=== PATIENT | male | born 1945 | race Caucasian/White ===

== ENCOUNTER 2016-05-15 12:06 | Emergency (ER) | payer OTHER ==
--- NOTE | 2016-05-15 13:33 | ED EKG INTERP ---
EKG Interpretation - EKG Time of EKG reading by physician:: 12:31 EKG Read and Signed by:: Esmer Stevens EKG Interpretation (*Must complete 3 of following elements*): Abnormal Rate: 88 Rhythm: atrial-sensed ventricular -paced rhythm <Mandy Tidwell - Last Filed: 05/15/16 13:32> - EKG Time of EKG reading by physician:: 13:46 <Hang Wilder - Last Filed: 05/15/16 13:47> Attestation - Scribe Verification/Attestation Scribe:: Mandy Tidwell Acting as Scribe for:: Esmer Stevens Scribe documention review:: This chart was documented by a scribe and accurately reflects the service the provider performed and the decisions made by the provider. <Mandy Tidwell - Last Filed: 05/15/16 13:32> Physician Attestation
--- NOTE | 2016-05-15 13:53 | PROVIDER DOCUMENTATION ---
HPI-Musculoskeletal Pain/Inj - GENERAL Chief Complaint: Extremity Pain Stated Complaint: right leg pain Time Seen by Provider: 05/15/16 13:20 Source: patient, family - HX OF PRESENT ILLNESS-MUSKULOSKELTAL Quality of Pain: reports: aching, tightness Severity in ED: mild Onset/Duration: other (Apr 28, 2016) Timing: getting worse Modifying Factors: improves with: nothing Any recent injury?: No Similar Symptoms Previously?: No Recently seen or treated by another doctor?: Yes (Leg not investigated) - FALL INJURY Location of Pain/Injury: reports: lower body Pain Radiation: reports: no radiation Injury Associated Symptoms: reports: denies symptoms - LOWER EXTREMITY PAIN/INJURY Lower Extremities Pain: thigh: right (Ecchymosis in rt groin) Review of Systems - Adult - REVIEW OF SYSTEMS - ADULT Constitutional: reports: no symptoms reported Eyes: reports: no symptoms reported Ears, Nose, Mouth & Throat: reports: no symptoms reported Cardiovascular: reports: chest pain, irregular heart rate, poor circulation Respiratory: reports: dyspnea on exertion, shortness of breath Gastrointestinal: reports: other (history of colon ca) Genitourinary: reports: no symptoms reported Musculoskeletal: reports: see HPI Integumentary: reports: no symptoms reported Neurological: reports: loss of balance (he appears to have had multiple TIA the past few months) Psychiatric: reports: no symptoms reported (IDDM) Hematologic/Lymphatic: reports: no symptoms reported Allergic/Immunologic: reports: no symptoms reported Past History - Adult - PAST MEDICAL HISTORY-ADULT Major Childhood Illnesses: reports: denies history Cardiovascular: reports: HTN, hyperlipidemia, ME, pacemaker Respiratory: reports: other (ARDS) Gastrointestinal: reports: cancer (colon), GERD, pancreatitis, other (colon can - currently in remission) Genitourinary: reports: kidney disease (insuffiencey) Musculoskeletal: reports: chronic pain (back) Neurological: reports: cancer/tumor, cognitive dysfunction, TIA Psychiatric: reports: denies history Endocrine/Immune: reports: Diabetes Diabetes Type: Type 2 Diabetes controlled by:: Insulin Dependent - PRIOR SURGERIES/PROCEDURES Surgical/Procedure History: reports: CABG, pacemaker, bowel surgery, back/neck - IMMUNIZATION STATUS Childhood Immunizations: See Nurse Assessment Flu Vaccine: See Nurse Assessment - FAMILY HISTORY Family History: reviewed, not pertinent - SOCIAL HISTORY Smoking: denies Substance Use: none/never Alcohol Use Frequency: never 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) Physical Exam-Injury Related - Physical Exam-Injury Related Initial Vital Signs Reviewed: Yes General Appearance: appears well, alert Eyes: PERRL/EOMI, pink conjunctivae Head, Ears, Nose, Mouth & Throat: normocephalic/atraumatic Neck: non-tender, full range of motion Respiratory: chest non-tender, lungs clear Cardiovascular: normal peripheral pulses, regular rate, rhythm Abdominal Exam: normal bowel sounds, soft Male Genitalia: other (Ecchymosis in ing region where he had cath 04/28) Rectal Exam: deferred Lymphatic: no adenopathy Back Exam: normal inspection Extremity: normal inspection, no pedal edema, no calf tenderness, swelling Neurologic: grossly normal (peripheral neuropathy) - Glascow Coma Score Best Verbal Response ([place]): (2) incomprehsible sounds [place] Total: 15 Progress - PLAN OF CARE/RESULTS Progress/Plan/Lab Results: Laboratory Tests 05/15/16 05/15/16 05/15/16 12:38 12:38 12:38 WBC 6.71 RBC 3.81 L Hgb 12.0 L Hct 36.8 L MCV 96.6 MCH 31.5 H MCHC 32.6 L RDW Std Deviation 14.7 H Plt Count 179 MPV 10.4 Immature Gran % (Auto) 0.3 Neut % (Auto) 65.6 Lymph % (Auto) 17.9 L [place] % (Auto) 12.8 H Eos % (Auto) 2.8 Baso % (Auto) 0.6 Immature Gran # (Auto) 0.02 Neut # (Auto) 4.40 Lymph # (Auto) 1.20 [place] # (Auto) 0.86 H Eos # (Auto) 0.19 Baso # (Auto) 0.04 D-Dimer 0.49 Sodium 131 L Potassium 4.5 Chloride 94 L Carbon Dioxide 25 Anion Gap 12 BUN 34 H Creatinine 1.6 H Estimated GFR/1.73 m2 43 BUN/Creatinine Ratio 21 Glucose 394 H Calculated Osmolality 287 Calcium 8.6 L Orders Category Date Time Status BMP [BASIC METABOLIC PANEL] [CHEM] Stat Lab 05/15/16 12:38 Completed CBC WITH ELECTRONIC DIFF [HEME] Stat Lab 05/15/16 12:38 Completed D-DIMER [CHEM] Stat Lab 05/15/16 12:38 Completed Venous U/S Right Leg [CV] Stat Ther 05/15/16 13:39 Completed - ULTRASOUND (By Radiology) 1 US Study: Lower Ext (no DVT) Departure - Departure Time of Disposition Order: 14:51 DIAGNOSIS: Ecchymosis on examination Disposition: HOME 01 Certified Medical Emergency: Emergent Condition: Good
[2016-05-15 14:09] LABS: MANUAL DIFF NEEDED? NO
[2016-05-15 14:21] LABS: BASO% 0.6 % (0.0-0.8); EOS# 0.19 X1000 (0.0-0.7); EOS% 2.8 % (0.0-10.0); HEMATOCRIT 36.8 % (42.0-52.0); IMM GRAN# 0.02 X1000 (0.0-0.04); IMM GRAN% 0.3 % (0.0-0.5); LYMPH% 17.9 % (20.5-51.1); MCH 31.5 PG (27-31); MCHC 32.6 g/dL (33-37); MCV 96.6 FL (81-99); MONO# 0.86 X1000 (0.11-0.59); MONO% 12.8 % (1.7-9.3); MPV 10.4 FL (7.4-10.4); NEUT% 65.6 % (42.2-75.2); PLT 179 X1000 (130-400); RBC 3.81 XMIL (4.7-6.1)
[2016-05-15 14:39] LABS: CALCIUM 8.6 mg/dL (8.8-10.2); POTASSIUM 4.5 mmol/L (3.5-5.1)
[2016-05-15 14:46] VITALS: BP 164/99
--- NOTE | 2016-05-18 08:01 | EKG Report ---
Test Performed on : 05/15/2016 12:31:17 PM Test Reason : done in ED/No order in Concurrent [employer] Blood Pressure : / mmHG Vent. Rate : 088 BPM Atrial Rate : 088 BPM P-R Int : 130 ms QRS Dur : 182 ms QT Int : 436 ms P-R-T Axes : 047 -64 117 degrees QTc Int : 527 ms Atrial-sensed ventricular-paced rhythm Abnormal ECG When compared with ECG of 18-DEC-2015 17:57, Vent. rate has increased BY 16 BPM Unconfirmed Result
== END 2016-05-15 14:50 | disposition home or self-care (01) ==
LOC: ED 12:06
DX: R58 Hemorrhage, not elsewhere classified (principal); M79.604 Pain in right leg; R07.9 Chest pain, unspecified; I49.9 Cardiac arrhythmia, unspecified; R06.09 Other forms of dyspnea; R06.02 Shortness of breath; Z85.038 Personal history of other malignant neoplasm of large intestine; Z86.73 Personal history of transient ischemic attack (TIA), and cerebral infarction without residual deficits; Z79.899 Other long term (current) drug therapy; R26.81 Unsteadiness on feet; I10 Essential (primary) hypertension; E78.5 Hyperlipidemia, unspecified; I25.2 Old myocardial infarction; J80 Acute respiratory distress syndrome; N28.9 Disorder of kidney and ureter, unspecified; M54.9 Dorsalgia, unspecified; G89.29 Other chronic pain; E11.9 Type 2 diabetes mellitus without complications; Z95.1 Presence of aortocoronary bypass graft; Z95.0 Presence of cardiac pacemaker; Z79.4 Long term (current) use of insulin; Z79.82 Long term (current) use of aspirin
CPT/HCPCS: 80048; 85025; 85379; 93005; 93971; 99282

== ENCOUNTER 2018-06-16 21:24 | Inpatient (IN) ==
[2018-06-16] MEDS ORDERED: ASPIRIN PO ONE (21:54)
[2018-06-16 22:19] LABS: BASO# 0.06 X1000 (0.0-0.2); BASO% 0.9 % (0.0-0.8); EOS# 0.16 X1000 (0.0-0.7); EOS% 2.4 % (0.0-10.0); HEMATOCRIT 36.3 % (42.0-52.0); HEMOGLOBIN 11.4 g/dL (14.0-18.0); LYMPH% 17.8 % (20.5-51.1); MCH 28.6 PG (27-31); MCHC 31.4 g/dL (33-37); MCV 91.2 FL (81-99); MONO# 0.99 X1000 (0.11-0.59); MONO% 14.7 % (1.7-9.3); MPV 10.6 FL (7.4-10.4); NEUT# 4.32 X1000 (1.4-6.5); NEUT% 64.2 % (42.2-75.2); PLT 148 X1000 (130-400); RBC 3.98 XMIL (4.7-6.1); RDW 16.6 % (11.5-14.5); WBC 6.73 X1000 (4.8-10.8)
[2018-06-16 22:30] LABS: INR 1.3; PROTIME 17.2 Seconds (11.0-16.0)
[2018-06-16 22:31] LABS: PTT 36.6 Seconds (22.3-41.8)
[2018-06-16 22:43] LABS: ALB/GLOB RATIO 1.3; CALCIUM 9.2 mg/dL (8.8-10.2); POTASSIUM 4.8 mmol/L (3.5-5.1); TOTAL BILIRUBIN 0.57 mg/dL (0.20-1.00)
[2018-06-16 23:08] LABS: CK-MB 7.86 ng/mL (0.0-5.0)
--- NOTE | 2018-06-17 00:53 | PROVIDER DOCUMENTATION ---
This chart was entered by Francisca Green Scribe, acting as scribe for Cordell Payan MD. HPI-General Adult - General Chief Complaint: Shortness of Breath Stated Complaint: FLUID BUILD UP Time Seen by Provider: 06/16/18 22:20 Source: patient Allergies/Adverse Reactions: Patient Allergies Allergy/AdvReac Type Severity Reaction Status Date / Time No Known Allergies Allergy Verified 07/26/17 19:11 Home Medications: Home Medication List Medication Instructions Recorded Confirmed Last Taken Type Niacin E.r. [Niaspan] 1,000 mg PO BID 01/08/14 07/26/17 07/26/17 07:00 History PRAVAstatin [Pravachol] 80 mg PO HS 05/03/15 07/26/17 07/25/17 20:00 History Tamsulosin [Flomax] 0.4 mg PO DAILY 06/05/15 07/26/17 07/26/17 07:00 History Hydralazine [Apresoline] 25 mg PO 0800,1400,2000 #90 tablet 06/13/15 07/26/17 14:00 Rx Aspirin 81 mg PO DAILY 08/14/15 07/26/17 07/26/17 07:00 History Gabapentin 200 mg PO QHS 08/14/15 07/26/17 07/25/17 20:00 History Insulin Glargine [Lantus] 35 unit SUBQ BID 08/14/15 07/26/17 07/26/17 07:00 History Sertraline HCl [Zoloft] 150 mg PO DAILY 08/14/15 07/26/17 07/26/17 07:00 History Quetiapine [Seroquel] 25 mg PO QHS 03/24/17 07/26/17 07/25/17 20:00 History Carvedilol [Coreg] 6.25 mg PO BID tablet 03/30/17 07/26/17 07/26/17 07:00 Rx Insulin Humulin 70/30 [Humulin 60 unit SUBQ BID 05/26/17 07/26/17 07/26/17 07: 00 History 70/30] Colchicine [Colcrys] 0.6 mg PO BID PRN #60 tab 06/05/17 07/26/17 Unknown Rx Docusate Sodium [Colace] 200 mg PO BID #60 cap 06/05/17 07/26/17 07/26/17 07:00 Rx Isosorbide Dinitrate [Isordil] 20 mg PO TID #90 tab 06/05/17 07/26/17 07/26/17 14:00 Rx Levalbuterol Neb [Xopenex Neb] 1.25 mg INH RTQ4H #5 neb 06/05/17 07/26/17 14:00 Rx Levothyroxine [Synthroid] 88 microgm PO DAILY@0700 #30 tab 06/05/17 07/26/17 07:00 Rx Cyclobenzaprine [Flexeril] 10 mg PO TID #30 tab 06/16/17 07/26/17 07/26/17 13: 00 Rx Hydrocodone/APAP 7.5 mg/325 mg 1 ea PO Q6H PRN PRN #30 tab 06/16/17 07/26/17 Unknown Rx [[place]-7.5] Omeprazole [Prilosec] 20 mg PO DAILY@0700 capsule 06/16/17 07/26/17 07/26/17 07 :00 Rx Furosemide [Lasix] 80 mg PO BID 07/26/17 07/26/17 07/26/17 07:00 History Allopurinol 100 mg PO QHS 30 Days #30 tablet 08/02/17 Unknown Rx Mirtazapine [Remeron] 15 mg PO HS tablet 08/02/17 Unknown Rx - History of Present Illness -Gen Adult Nature of Presenting Problems: Pt is 73/m presenting to ED w/ fluid overload and increased SOB for the last several days. Pt has CHF and takes lasix on a regular basis, sts that they are not working at this point and he has gained about 20 lbs in water weight. Pt is on 02 at home, 2liters Location of Pain/Injury: reports: generalized (fluid overload) Quality of Pain: reports: none Severity: reports: moderate Onset/Duration: reports: 3 days ago Timing: reports: still present, getting worse Context/Activities at Onset: reports: other (CHF) Modifying Factors: improves with: nothing Associated Symptoms: reports: shortness of breath Similar Symptoms Previously?: Yes Recently seen or treated by another doctor?: Yes Review of Systems - Adult - REVIEW OF SYSTEMS - ADULT Constitutional: reports: no symptoms reported. denies: chills, fever Eyes: reports: no symptoms reported Ears, Nose, Mouth & Throat: reports: no symptoms reported Cardiovascular: reports: edema. denies: chest pain Respiratory: reports: shortness of breath Gastrointestinal: reports: no symptoms reported Genitourinary: reports: no symptoms reported Musculoskeletal: reports: no symptoms reported Integumentary: reports: no symptoms reported Neurological: reports: no symptoms reported. denies: dizziness/vertigo, headache/migraines Psychiatric: reports: no symptoms reported Endocrine: reports: no symptoms reported Hematologic/Lymphatic: reports: no symptoms reported Allergic/Immunologic: reports: no symptoms reported All Other Systems: Reviewed and Negative Past History - Adult - PAST MEDICAL HISTORY-ADULT Review of Records: reports: Old Records Reviewed, Nursing Assessment Review, Medications Reviewed, Social history reviewed & non-contributory. Major Childhood Illnesses: reports: denies history Cardiovascular: reports: HTN, hyperlipidemia, [place], pacemaker Respiratory: reports: other (ARDS) Gastrointestinal: reports: cancer (colon), GERD, pancreatitis, other (colon can - currently in remission) Genitourinary: reports: kidney disease (insuffiencey) Musculoskeletal: reports: chronic pain (back) Neurological: reports: cancer/tumor, cognitive dysfunction, TIA Psychiatric: reports: denies history Endocrine/Immune: reports: Diabetes - PRIOR SURGERIES/PROCEDURES Surgical/Procedure History: reports: CABG, pacemaker, bowel surgery, back/neck - IMMUNIZATION STATUS Childhood Immunizations: See Nurse Assessment Flu Vaccine: See Nurse Assessment - FAMILY HISTORY Family History: reviewed, not pertinent - SOCIAL HISTORY Living Situation: family Physical Exam-General - PHYSICAL EXAM-ADULT Initial Vital Signs Reviewed: Yes - CONSTITUTIONAL General Appearance: appears well, alert, no apparent distress - EYES Eyes: PERRL/EOMI - HEAD, EARS, NOSE, MOUTH & THROAT HENMT: moist mucous membranes, normal ENT inspection, TMs normal - NECK Neck: non-tender, full range of motion, supple - RESPIRATORY Respiratory: chest non-tender, lungs clear, normal breath sounds - CARDIOVASCULAR Cardiovascular: regular rate, rhythm, other (pitting edema) - LYMPHATIC Lymphatic: no adenopathy - MUSCULOSKELETAL Back Exam: normal inspection Extremity: normal range of motion, non-tender, normal gait, normal inspection - SKIN Integumentary: normal color, warm/dry - NEUROLOGIC Neurologic: grossly normal - PSYCHIATRIC Psych/Mental Status: normal mood/affect, normal thought content, normal thought process, oriented x 3 Progress - PLAN OF CARE/RESULTS Progress/Plan/Lab Results: Vital Signs - 8 hr 06/16/18 21:44 Temperature 98.0 F Pulse Rate 40 L Respiratory Rate 20 Blood Pressure 148/78 O2 Sat by Pulse Oximetry 98 Laboratory Results - last 24 hr 06/16/18 06/16/18 06/16/18 22:00 22:00 22:00 WBC 6.73 RBC 3.98 L Hgb 11.4 L Hct 36.3 L MCV 91.2 MCH 28.6 MCHC 31.4 L RDW Std Deviation 16.6 H Plt Count 148 MPV 10.6 H Immature Gran % (Auto) 0.0 Neut % (Auto) 64.2 Lymph % (Auto) 17.8 L [place] % (Auto) 14.7 H Eos % (Auto) 2.4 Baso % (Auto) 0.9 H Immature Gran # (Auto) 0.00 Neut # (Auto) 4.32 Lymph # (Auto) 1.20 [place] # (Auto) 0.99 H Eos # (Auto) 0.16 Baso # (Auto) 0.06 PT 17.2 H INR 1.30 PTT (Actin FS) 36.6 Sodium 134 L Potassium 4.8 Chloride 95 L Carbon Dioxide 26 Anion Gap 13 BUN 42 H Creatinine 2.0 H Estimated GFR/1.73 m2 33 BUN/Creatinine Ratio 21 Glucose 158 H Calculated Osmolality 282 Calcium 9.2 Total Bilirubin 0.57 AST 29 ALT 12 Alkaline Phosphatase 70 Creatine Kinase 398 H Troponin T Total Protein 7.0 Albumin 4.0 Globulin 3.0 Albumin/Globulin Ratio 1.3 06/16/18 22:00 WBC RBC Hgb Hct MCV MCH MCHC RDW Std Deviation Plt Count MPV Immature Gran % (Auto) Neut % (Auto) Lymph % (Auto) [place] % (Auto) Eos % (Auto) Baso % (Auto) Immature Gran # (Auto) Neut # (Auto) Lymph # (Auto) [place] # (Auto) Eos # (Auto) Baso # (Auto) PT INR PTT (Actin FS) Sodium Potassium Chloride Carbon Dioxide Anion Gap BUN Creatinine Estimated GFR/1.73 m2 BUN/Creatinine Ratio Glucose Calculated Osmolality Calcium Total Bilirubin AST ALT Alkaline Phosphatase Creatine Kinase Troponin T 0.169 H Total Protein Albumin Globulin Albumin/Globulin Ratio Orders Category Date Time Status Cardiac Monitoring DIRECTED Care 06/16/18 21:55 Active Oxygen Therapy- ED Nursing DIRECTED Care 06/16/18 21:55 Active Saline Loc NOW Care 06/16/18 21:55 Active CHEST-2 VIEWS [RAD] Stat Exams 06/16/18 21:55 Taken CBC WITH ELECTRONIC DIFF [HEME] Stat Lab 06/16/18 22:00 Completed CBC WITH ELECTRONIC DIFF [HEME] Stat Lab 06/16/18 22:49 Uncollected CK PROFILE [SP CHEM] Stat Lab 06/16/18 22:00 Results COMPREHENSIVE METABOLIC PANEL [CHEM] Stat Lab 06/16/18 22:00 Results INFLUENZA SCREEN A/B Stat Lab 06/16/18 22:48 Uncollected PRO B-NATRIURETIC PEPTIDE Stat Lab 06/16/18 22:00 Received PROTIME WITH INR [COAG] Stat Lab 06/16/18 22:00 Completed PTT [COAG] Stat Lab 06/16/18 22:00 Completed TROPONIN T Stat Lab 06/16/18 22:00 Completed TROPONIN T Stat Lab 06/16/18 22:48 Uncollected Aspirin Med 06/16/18 21:54 Discontinued 325 mg PO NOW ONE CP/SOB/Palp >45 yrs of Age Stat Oth 06/16/18 21:54 Ordered EKG [EKG] Stat Ther 06/16/18 21:55 Ordered Result Diagrams: 06/16/18 22:00 06/16/18 22:00 Departure - Departure Date of Disposition Decision: 06/17/18 Time of Disposition Decision: 00:53 DIAGNOSIS: Pleural effusion Disposition: ADMITTED INPATIENT 09 Certified Medical Emergency: Emergent Condition: Stable Referrals and Follow-Ups: Cristy Rodriguez MD [Primary Care Provider] - - Critical Care Note This patient required my direct & personal management of CC.: No Attestation - Physician/ ANYA Attestation Patient care was provided by Advanced Practice Provider:: No The physician spent face to face time with patient:: Yes Advanced Practice Provider documentation review:: Supervising physician onsite and consulted in the evaluation and care of this patient. The physician did have a face to face encounter with the patient. This chart was documented by the indicated scribe, (Francisca Green Scribe) and accurately reflects the services I performed and decisions made by Schuyler garibay Brad R., MD, as attested by the provider's signature.
[2018-06-17] MEDS ORDERED: ZOFRAN IV PRN (03:16)
--- NOTE | 2018-06-17 03:29 | HISTORY AND PHYSICAL ---
PRIMARY CARE PHYSICIAN: Dr. Cristy Rodriguez. CHIEF COMPLAINT: Shortness of breath. HISTORY OF PRESENTING ILLNESS: A 71-year-old male with a history of CHF, diabetes mellitus type 2, colon cancer, coronary artery disease, chronic kidney disease, solitary kidney, who had presented to emergency department with 2 weeks history of progressive worsening shortness of breath. The patient states that he was having trouble breathing. He had tried to increase his oxygen, however, he did not have any improvement. The patient states that over the course of several days he started having worsening troubles and subsequently had come to the emergency department. In the ED, he was evaluated and he was found to be in heart failure and due to his presenting symptoms he will require admission for further management. At the time of my examination, he denied any headache, fever, chills, chest pain, hemoptysis, melena, but complained of having weight gain about 20 pounds and also being short of breath. PAST MEDICAL HISTORY: Includes colon cancer, diabetes mellitus type 2, CHF, coronary artery disease, [place], chronic kidney disease, solitary kidney, hypertension, hypothyroidism. PAST SURGICAL HISTORY: Coronary artery bypass, ICD, colon surgery, back surgery, skin cancer surgery. ALLERGIES: No known drug allergies. CURRENT MEDICATIONS: Include the following: Allopurinol 100 mg p.o. at bedtime, carvedilol 6.25 mg p.o. b.i.d., Flexeril 10 mg p.o. t.i.d., Lasix 80 mg p.o. b.i.d., gabapentin 200 mg p.o. at bedtime, [place] 7.5 mg p.o. q.6 hours, Lantus 35 units subcu b.i.d., Humulin 70/30 of 60 units subcutaneous b.i.d., Xopenex 1.25 nebs q.4 hours, levothyroxine 88 mcg p.o. daily, omeprazole 20 mg p.o. daily, pravastatin 40 mg p.o. at bedtime, quetiapine 25 mg p.o. at bedtime, sertraline 150 mg p.o. daily, tamsulosin 0.4 mg p.o. daily. SOCIAL HISTORY: He is a former smoker. No history of alcohol or illicit drug use. FAMILY HISTORY: Positive for coronary artery disease in mother and father. REVIEW OF SYSTEMS: Fourteen point review of systems as listed in HPI. Other systems negative. PHYSICAL EXAMINATION: GENERAL: Cooperative, friendly male. He is resting more comfortably now. VITAL SIGNS: Temperature 98.0 degrees, pulse 40, respiration 20, blood pressure 148/78, saturating 98%. HEENT: Atraumatic, normocephalic. Extraocular movements intact. PERRLA. NECK: No masses. CHEST: Bibasilar rales. CARDIOVASCULAR: Regular rate and rhythm. ABDOMEN: Soft, obese, positive bowel sounds. EXTREMITIES: +1 edema. NEUROLOGIC: He is awake, alert, oriented x3. GENITOURINARY: No bladder distention. SKIN: Warm. LABORATORIES AND STUDIES: WBC 6.73, hemoglobin 11.4, hematocrit 36.3, platelets 148,000. Sodium 134, potassium 4.8, chloride 95, CO2 is 26, BUN is 42, creatinine is 2.0, glucose 158. ProBNP is 3065, troponin is 0.169. ASSESSMENT: A 73-year-old male with a history of congestive heart failure, coronary artery disease, chronic kidney disease, hypertension, who presented to emergency department with 2 weeks history of progressive worsening shortness of breath. He was evaluated in the emergency department. He was found to be in heart failure and due to his presenting symptoms he will require admission for further management. 1. Acute congestive heart failure exacerbation, systolic dysfunction. 2. Mildly elevated troponins. 3. Coronary artery disease. 4. Hypertension. 5. Diabetes mellitus type 2. 6. Chronic kidney disease. PLAN: 1. We will admit patient to [facility]. 2. Continue with gentle diuresis with Lasix. 3. We will consult his security guard. 4. We will continue to trend troponins. 5. We will monitor blood pressure. Resume antihypertensive agent. 6. We will put patient on glycemic protocol with sliding scale insulin regimen. 7. Monitor his renal function. 8. Put patient on DVT prophylaxis with heparin and SCDs. 9. We will continue to follow, and reassess and make further recommendation based on patient's clinical course. cc: Shan Ramirez MD
[2018-06-17] MEDS: XOPENEX NEB INH SCH ×6 (03:30→23:51)
[2018-06-17] MEDS: LASIX IV SCH ×2 (04:15→15:51)
[2018-06-17] MEDS: HUMULIN R SUBQ SCH ×3 (07:00→15:49)
--- NOTE | 2018-06-17 07:19 | EKG Report ---
Test Performed on : 06/16/2018 11:09:33 PM Test Reason : sob Blood Pressure : / mmHG Vent. Rate : 079 BPM Atrial Rate : 079 BPM P-R Int : 118 ms QRS Dur : 178 ms QT Int : 476 ms P-R-T Axes : 079 146 077 degrees QTc Int : 545 ms Atrial-sensed ventricular-paced rhythm Abnormal ECG When compared with ECG of 14-JUN-2017 06:29, Vent. rate has decreased BY 11 BPM Unconfirmed Result
--- NOTE | 2018-06-17 07:21 | Diag Imaging Result Doc PS360 ---
EXAM: CHEST-2 VIEWS 06/16/2018 HISTORY: sob TECHNIQUE: PA and lateral chest COMMENT: There is cardiomegaly. Compared to 08/02/2017 the appearance of the chest has not changed significantly. IMPRESSION: Stable chest. Electronically signed by Peter Rudolph 06/17/2018 7:19 AM
[2018-06-17] MEDS: COREG PO SCH ×2 (09:10→22:17)
[2018-06-17] MEDS: SYNTHROID PO SCH (09:11)
[2018-06-17] MEDS: PRILOSEC PO SCH (09:11)
--- NOTE | 2018-06-17 11:09 | CARDIOLOGY CONSULTATION ---
DATE: 06/17/2018 CHIEF COMPLAINT ON PRESENTATION: Shortness of breath. HISTORY OF PRESENT ILLNESS: Mr. Lewis is a 71-year-old white male with a history of ischemic cardiomyopathy, diabetes, and chronic kidney disease. Over the last several weeks, he has been progressively increasing weight and having more shortness of breath. He reports compliance with his medications, dietary restrictions including sodium and fluid restriction. He has not had any exertional chest pain. His oral medications at home, specifically his diuretics, have not been working as well despite increasing the doses gradually. He has had issues with orthopnea. He has been compliant with his CPAP therapy. PAST MEDICAL HISTORY: 1. Significant for an ischemic cardiomyopathy. His last cardiac catheterization was in August 2015. At that time, he had an occluded LAD, circumflex, and right coronary. He had a patent mammary to the LAD, a patent vein graft to the right coronary, a severely and diffusely diseased vein graft to an extremely small diagonal. This was treated with medical therapy. His last ejection fraction by nuclear scan was 22% in May 2017. Echo was estimated at 25 to 30 percent. 2. History of myocardial infarction. 3. Ventricular tachycardia with biventricular ICD in place. 4. Hypertension. 5. Hyperlipidemia. 6. Diabetes. 7. Obstructive sleep apnea. 8. CVA. 9. Chronic kidney disease followed by Dr. Hogue. 10. History of colon cancer status post colectomy. 11. Gout. 12. Osteoarthritis. SOCIAL HISTORY: He is . His is present at the bedside. He does not currently smoke, previously did. FAMILY HISTORY: Significant for coronary disease in both mother and father. REVIEW OF SYSTEMS: A 10-system review of systems is negative except for those mentioned in HPI. PHYSICAL EXAMINATION: Vital signs: Patient is afebrile here. Heart rate of 88. His most recent blood pressure was 150/97. His presenting blood pressure was 148/78. His I's and O's have not been recorded as of yet. General: He is in no acute distress. HEENT: Oropharynx is moist. Poor dentition. Eye examination is pink conjunctivae. White sclerae. Neck: Examination shows no obvious thyromegaly or thyroid tenderness. Cardiovascular: He sounds to be in a regular rate and rhythm. I do not hear any obvious murmurs. He has no lower extremity edema. He has a difficult to assess JVP. Chest: Exam sounds relatively clear. He has no increased work of breathing. Abdomen: Extremely protuberant. Patient says it is more firm and is nontender. No obvious organomegaly. Skin: Warm and dry throughout without any rashes. Neurological: He is moving all extremities. He has no lateralizing deficits. Psychiatric: He is alert, oriented, pleasant. He has a normal mood and affect. PERTINENT DATA: His chest x-ray shows no evidence of any acute abnormalities. His EKG reviewed by me seems to demonstrate a sinus mechanism. It is a ventricular paced rhythm. His white count is 6.7, his hematocrit is 36, platelet count is 148,000. His INR is 1.3. Sodium 134, potassium 4.8, BUN 42, creatinine is 2. His troponins are mildly elevated at 0.169 with the most recent of 0.122. He seems to run persistent elevations in his troponins frequently. He is not having any chest pain. ASSESSMENT: Mr. Lewis is a 73-year-old gentleman, who presented with shortness of breath and significant abdominal swelling and weight gain. PLAN: He appears to be in acute systolic heart failure. He seems to be diuresing on his current dose of Lasix. We will continue on that and consider escalation of his ROBERT inhibitor in the near future. The patient seems compliant with all of his medications as well as his dietary restrictions. We will continue to follow along. cc: Humberto Omer MD
[2018-06-17] MEDS: APRESOLINE PO SCH ×2 (13:29→17:55)
[2018-06-17] MEDS: NORCO-7.5 PO PRN (21:40)
[2018-06-18] MEDS: HUMULIN R SUBQ SCH ×5 (00:36→22:07)
[2018-06-18] MEDS: NEURONTIN PO SCH ×2 (00:37→22:03)
[2018-06-18] MEDS: PRAVACHOL PO SCH ×2 (00:37→22:04)
[2018-06-18] MEDS: NORCO-7.5 PO PRN ×2 (02:51→22:10)
[2018-06-18] MEDS: XOPENEX NEB INH SCH ×6 (03:41→23:22)
[2018-06-18 05:44] LABS: BASO# 0.04 X1000 (0.0-0.2); BASO% 0.7 % (0.0-0.8); EOS% 3.3 % (0.0-10.0); HEMATOCRIT 34.7 % (42.0-52.0); HEMOGLOBIN 10.9 g/dL (14.0-18.0); LYMPH# 0.89 X1000 (1.2-3.4); LYMPH% 14.8 % (20.5-51.1); MCH 28.6 PG (27-31); MCHC 31.4 g/dL (33-37); MCV 91.1 FL (81-99); MONO# 0.87 X1000 (0.11-0.59); MONO% 14.5 % (1.7-9.3); MPV 10.7 FL (7.4-10.4); NEUT# 4.02 X1000 (1.4-6.5); NEUT% 66.7 % (42.2-75.2); PLT 143 X1000 (130-400); RBC 3.81 XMIL (4.7-6.1); RDW 16.6 % (11.5-14.5); WBC 6.02 X1000 (4.8-10.8)
[2018-06-18] MEDS: LASIX IV SCH ×3 (05:54→14:22)
[2018-06-18 05:55] LABS: CALCIUM 8.9 mg/dL (8.8-10.2); CREATININE 1.8 mg/dL (0.7-1.2); POTASSIUM 4.8 mmol/L (3.5-5.1)
[2018-06-18] MEDS: SYNTHROID PO SCH (06:04)
[2018-06-18] MEDS: PRILOSEC PO SCH (06:04)
[2018-06-18] MEDS: PRINIVIL PO SCH (08:11)
[2018-06-18] MEDS: COREG PO SCH ×2 (08:11→22:03)
[2018-06-18] MEDS: APRESOLINE PO SCH ×3 (08:11→17:29)
[2018-06-18] MEDS: ASPIRIN PO SCH (08:11)
[2018-06-18] MEDS: ZAROXOLYN PO SCH ×2 (10:07→22:04)
--- NOTE | 2018-06-18 11:54 | PROGRESS NOTE ---
DATE: 06/18/2018 SUBJECTIVE: This morning, Mr. Lewis was sitting up on the side of the bed. The was at the bedside. He refers to be feeling a whole lot better. He said his shortness of breath is improved, and the swelling has also significantly improved. OBJECTIVE: Vital signs: Blood pressure is 135/69, pulse is 53, respiration is 18, temperature 97.9 degrees. General: On general exam, Mr. Lewis is a 73-year-old gentleman. He was sitting at the edge of the bed, was not in any distress and was breathing ambient air. HEENT: Mucosa is pink and moist. Anicteric. Acyanotic. Neck: Supple. Chest: Good air entry bilateral. A few crackles posteriorly, but no wheezing or rhonchi. Cardiovascular: Regular rate and rhythm. There is a pacemaker generator on the left anterior chest wall. Abdomen: Soft, distended, but nontender. Bowel sounds present. Extremities: Trace pedal edema. No discharge. Distal pulses were present. STATION MECHANIC: Patient is awake, alert, oriented. There is no focal neurological deficit. LABORATORY DATA: WBC is 6.02, hemoglobin is 10.9, platelet count of 143. Chemistry is also reviewed. Creatinine is down to 1.8. CURRENT MEDICATIONS: The patient's current medications have also been reviewed. I have added metolazone to his medications. The patient's I's and O's only 500. Urine output has been charted despite the patient refers that he has been peeing more. His weight is currently 253. Yesterday, it was 254, so only 1 pound is lost. ASSESSMENT: 1. Acute on chronic congestive heart failure with ejection fraction of 25% to 30% on recent echocardiogram. The patient normally follows up with Dr. Talbot, has been seen over here by Dr. Omer and his medications have been titrated. 2. History of severe ischemic cardiomyopathy noted. The patient is on anti-ischemic medications. 3. Hypoxemic respiratory failure on presentation secondary to pulmonary edema, improved. The patient is currently off nasal cannula oxygen supplementation. 4. Morbid obesity. Body mass index is 34.4 noted. 5. Fluid overload secondary to congestive heart failure. The patient is currently on diuretic therapy. He feels a lot better. I think he can be transitioned to oral diuretics. I have also added his home metolazone to enhance the diuretic effect. 6. Chronic kidney disease stage IIIB. Probable etiology is cardiorenal in origin. Creatinine is fairly stable within his normal baseline. 7. Diabetes mellitus. We will continue with current insulin regimen. 8. Hypertension is controlled. 9. Status post pacemaker and automatic implantable cardioverter defibrillator noted. PLAN: So, in general, I think Mr. Lewis is fairly stable now. Shortness of breath has significantly improved. Congestive symptoms have shown some improvement. He feels like he can be discharged, which I think it is probably okay for him to be discharged. However, I would want Cardiology to evaluate him today and give further recommendations on that. I have started the patient on home metolazone to help enhance the loop diuretic. The patient has not been started on aldosterone antagonist agent because it appeared in the past he had issues with potassium elevations. cc: Atilio Cabral MD
[2018-06-18] MEDS ORDERED: SEROQUEL PO SCH (21:00)
[2018-06-18] MEDS ORDERED: ZYLOPRIM PO SCH (21:00)
[2018-06-18] MEDS ORDERED: ZANTAC PO SCH (21:00)
[2018-06-18] MEDS: NIASPAN PO SCH (22:03)
[2018-06-19] MEDS: XOPENEX NEB INH SCH ×2 (03:14→07:59)
[2018-06-19] MEDS: LASIX IV SCH (03:26)
[2018-06-19] MEDS: SYNTHROID PO SCH (06:00)
[2018-06-19] MEDS: HUMULIN R SUBQ SCH (06:00)
[2018-06-19] MEDS: PRILOSEC PO SCH (06:00)
[2018-06-19 07:59] VITALS: BP 113/75
[2018-06-19] MEDS: COREG PO SCH (08:24)
[2018-06-19] MEDS: APRESOLINE PO SCH (08:24)
[2018-06-19] MEDS: PRINIVIL PO SCH (08:24)
[2018-06-19] MEDS: ZAROXOLYN PO SCH (08:24)
[2018-06-19] MEDS: ASPIRIN PO SCH (08:24)
[2018-06-19] MEDS: NIASPAN PO SCH (08:24)
[2018-06-19] MEDS ORDERED: FLOMAX PO SCH (09:00)
[2018-06-19] MEDS ORDERED: ZOLOFT PO SCH (09:00)
--- NOTE | 2018-06-19 20:06 | DISCHARGE SUMMARY ---
ADMISSION DATE: 06/17/2018 DISCHARGE DATE: 06/19/2018 DISPOSITION: Is home. FOLLOWUP: 1. Dr. Cristy Rodriguez. 2. Dr. Talbot. CONSULTATION: Cardiology was consulted, patient was seen by Dr. Humberto Omer followed up by Dr. Wasserman. INVASIVE PROCEDURES: None. IMAGING STUDIES OF SIGNIFICANT: A chest x-ray did show cardiomegaly which is stable. DIAGNOSIS AT THE TIME OF ADMISSION: 1. Acute congestive heart failure exacerbation. 2. Mildly elevated troponin. 3. Coronary artery disease. 4. Diabetes mellitus. 5. Chronic kidney disease. DIAGNOSIS AT THE TIME OF DISCHARGE: 1. Acute on chronic congestive heart failure ejection fraction of 25% to 30%, patient follows up with Dr. Talbot. Patient is now euvolemic and congestive symptoms have improved. 2. History of severe ischemic cardiomyopathy. 3. Hypoxemic respiratory failure on presentation secondary to pulmonary edema improved. 4. Morbid obesity with body mass index of 34.8, weight loss management has been advised. 5. Fluid overload secondary to congestive heart failure improved with diuretic therapy. 6. Chronic kidney disease stage 3B stable, patient creatinine is at baseline. 7. Diabetes mellitus, will continue with insulin regimen. 8. Hypertension controlled. 9. Status post pacemaker and implantable cardioverter defibrillator. DISCHARGE MEDICATIONS: 1. Pravastatin 80 mg p.o. at bedtime. 2. Tamsulosin 0.4 p.o. daily. 3. Glargine 35 units b.i.d. 4. Sertraline 150 p.o. daily. 5. Gabapentin 200 p.o. at bedtime. Seroquel 25 mg p.o. at bedtime. 1. Carvedilol 6.25 b.i.d. 2. Levothyroxine 88 mcg daily. 3. Omeprazole 20 mg daily. 4. Furosemide 80 mg b.i.d. 5. Aspirin 81 mg daily. 6. Mirtazapine 50 mg daily. 7. Cyanocobalamin. 8. Hydralazine 25 mg 3 times per day. PRESENTING COMPLAINT: Shortness of breath. HISTORY OF PRESENTING COMPLAINT: Mr. Lewis 73-year-old gentleman with a history of a congestive heart failure ejection fraction is 25 to 30 percent secondary to severe ischemic cardiomyopathy presented to the emergency department because of congestive symptoms. Patient was evaluated, was found to have put on more than 20 pounds and had fluid overload. He was subsequently admitted for further medical management. HOSPITAL COURSE: Patient was admitted to the cardiac unit and was started on IV diuretic therapy which he responded very well over the course of the hospital stay. The patient was also started back on all his other home medications and he was evaluated by Cardiology, Dr. Omer and was followed up by Dr. Wasserman. Throughout the hospital course he continued to improve from the congestive symptoms. His shortness of breath got remarkably improved and resolved. This morning he is actually 96% on room air, his vitals blood pressure is 113/75, pulse is 73 , respiration is 16, temperature 97.6 degrees. Physical exam is unremarkable. Congestive signs have completely resolved. Patient is therefore being discharged in stable condition. He will follow up with his primary care doctor, Dr. Cristy Rodriguez and with Dr. Talbot. He has been advised to continue with the 80 mg b.i.d. 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 All the discharge instructions have been discussed with him and he voices understanding. His was also at the bedside at the time of the encounter. TIME SPENT: 37 minutes. cc: Christopher Talbot MD MTDD
== END 2018-06-19 10:50 | disposition home or self-care (01) | DRG 291 ==
LOC: ED 21:24 → SUATTDRO 06-17 02:58 → EDIPHOLD 06-17 02:58 → 3S 06-17 17:17 → 3N 06-18 18:45
PROVIDERS: ATTEND Internal Medicine
CPT/HCPCS: 71020; 71046; 80048; 80053; 82550; 82553; 82948; 83880; 84443; 84484; 85025; 85610; 85730; 87275; 87276; 87804; 93005; 94640; 94761; 96374; 96376; 99285; A9270; J1940; XXXXX

== ENCOUNTER 2019-05-13 14:49 | Inpatient (IN) ==
--- NOTE | 2019-05-13 15:51 | Diag Imaging Result Doc PS360 ---
EXAM: CHEST-1 VIEW 05/13/2019 HISTORY: cough TECHNIQUE: AP upright chest COMMENT: There is cardiomegaly. There is some questionable atelectasis or pneumonia in the left costophrenic angle. Compared to 06/16/2018 otherwise are has been no significant change. IMPRESSION: Minimal left lower lobe atelectasis. Electronically signed by Peter Rudolph 05/13/2019 3:49 PM
[2019-05-13 16:02] LABS: BASO# 0.07 X1000 (0.0-0.2); BASO% 0.5 % (0.0-0.8); EOS# 0.19 X1000 (0.0-0.7); EOS% 1.4 % (0.0-10.0); HEMATOCRIT 41.8 % (42.0-52.0); HEMOGLOBIN 13.8 g/dL (14.0-18.0); IMM GRAN# 0.04 X1000 (0.0-0.04); IMM GRAN% 0.3 % (0.0-0.5); LYMPH# 1.02 X1000 (1.2-3.4); LYMPH% 7.5 % (20.5-51.1); MCH 32.5 PG (27-31); MCV 98.4 FL (81-99); MONO# 1.54 X1000 (0.11-0.59); MONO% 11.2 % (1.7-9.3); NEUT# 10.83 X1000 (1.4-6.5); NEUT% 79.1 % (42.2-75.2); PLT 150 X1000 (130-400); RBC 4.25 XMIL (4.7-6.1); RDW 14.3 % (11.5-14.5); WBC 13.69 X1000 (4.8-10.8)
[2019-05-13 16:45] LABS: ALB/GLOB RATIO 1.2; ALBUMIN 4.2 g/dL (3.5-5.0); CALCIUM 9.6 mg/dL (8.8-10.2); POTASSIUM 4.6 mmol/L (3.5-5.1); TOTAL BILIRUBIN 0.36 mg/dL (0.20-1.00); TOTAL PROTEIN 7.8 g/dL (6.3-8.3)
--- NOTE | 2019-05-13 17:29 | EKG Report ---
Test Performed on : 05/13/2019 3:33:43 PM Test Reason : cough Blood Pressure : / mmHG Vent. Rate : 081 BPM Atrial Rate : 081 BPM P-R Int : 136 ms QRS Dur : 192 ms QT Int : 458 ms P-R-T Axes : 000 157 086 degrees QTc Int : 532 ms Atrial-sensed ventricular-paced rhythm Abnormal ECG When compared with ECG of 16-JUN-2018 23:09, Vent. rate has increased BY 2 BPM Unconfirmed Result
[2019-05-13] MEDS ORDERED: ALBUTEROL NEB INH ONE ×2 (18:22→20:44)
[2019-05-13] MEDS ORDERED: DUONEB (A & A) INH ONE (18:22)
[2019-05-13] MEDS ORDERED: ROCEPHIN 1 GM in NS 50 ML IV ONE (18:24)
[2019-05-13] MEDS ORDERED: ZOFRAN IM ONE (18:24)
[2019-05-13] MEDS ORDERED: NS 1,000 ML IV ONE (18:25)
--- NOTE | 2019-05-13 20:46 | PROVIDER DOCUMENTATION ---
HPI-General Adult - General Chief Complaint: Flu Symptoms Stated Complaint: POSS PNEUMONIA Time Seen by Provider: 05/13/19 15:40 Source: patient, family Allergies/Adverse Reactions: Patient Allergies Allergy/AdvReac Type Severity Reaction Status Date / Time No Known Allergies Allergy Verified 05/13/19 17:58 Home Medications: Home Medication List Medication Instructions Recorded Confirmed Last Taken Type PRAVAstatin [Pravachol] 80 mg PO HS 05/03/15 05/13/19 05/12/19 History Tamsulosin [Flomax] 0.4 mg PO QAM 06/05/15 05/13/19 05/12/19 History Gabapentin 100 mg PO BID 08/14/15 05/13/19 05/12/19 History Sertraline HCl [Zoloft] 150 mg PO DAILY 08/14/15 05/13/19 05/12/19 History Quetiapine [Seroquel] 25 mg PO BID 03/24/17 05/13/19 05/12/19 History Carvedilol [Coreg] 6.25 mg PO BID tablet 03/30/17 05/13/19 05/12/19 Rx Furosemide [Lasix] 80 mg PO BID 07/26/17 05/13/19 05/12/19 History Allopurinol 100 mg PO QHS 30 Days #30 tablet 08/02/17 05/13/19 05/12/19 Rx Aspirin 81 mg PO DAILY 06/17/18 05/13/19 05/12/19 History Hydralazine [Apresoline] 25 mg PO TID 06/17/18 05/13/19 05/12/19 History Lisinopril 10 mg PO DAILY 06/17/18 05/13/19 05/12/19 History Metolazone 5 mg PO BID 06/17/18 05/13/19 05/12/19 History Mirtazapine 15 mg PO DAILY 06/17/18 05/13/19 05/12/19 History Niacin 500 mg PO BID 06/17/18 05/13/19 05/12/19 History Ranitidine [Zantac] 300 mg PO QHS 06/17/18 05/13/19 05/12/19 History Budesonide/Formoterol Inhaler 2 puff INH QAM PRN 01/24/19 05/13/19 05/12/19 History [Symbicort 160/4.5 Microgm Inhaler] Cyclobenzaprine [Flexeril] 10 mg PO PRN PRN 01/24/19 05/13/19 05/12/19 History Hydrocodone/Acetaminophen 1 tab PO DAILY 01/24/19 05/13/19 05/12/19 History [Hydrocodone-Acetamin 5-325 mg] Insulin Glargine,Hum.rec.anlog 40 units SQ BID 01/24/19 05/13/19 05/12/19 History [Lantus Solostar] Insulin NPH Hum/Reg Insulin Hm 35 units SQ TID 01/24/19 05/13/19 05/12/19 History [Humulin 70-30 Vial] Levothyroxine [Synthroid] 88 microgm PO DAILY 01/24/19 05/13/19 05/12/19 History - History of Present Illness -Gen Adult Nature of Presenting Problems: h/o copd, reports cough of 1 week duration presently getting worse with associated nausea and anorexia. Denies fever, headache or nasal congestion. has been giving him breathing treatment at home. Blood sugar is elevated today. Has not had his afternoon shot of 25u of insulin Location of Pain/Injury: reports: other (cough sob) Pain Radiation: reports: no radiation Quality of Pain: reports: none Onset/Duration: reports: 6 days ago Timing: reports: still present Context/Activities at Onset: reports: none Modifying Factors: improves with: nothing Associated Symptoms: reports: nausea - Diabetes Related Context Context: reports: high blood sugar Review of Systems - Adult - REVIEW OF SYSTEMS - ADULT Constitutional: reports: see HPI Eyes: reports: no symptoms reported Ears, Nose, Mouth & Throat: reports: no symptoms reported Cardiovascular: reports: no symptoms reported Respiratory: reports: see HPI, cough, shortness of breath Gastrointestinal: reports: nausea Genitourinary: reports: no symptoms reported Musculoskeletal: reports: no symptoms reported Integumentary: reports: no symptoms reported Neurological: reports: no symptoms reported Psychiatric: reports: no symptoms reported Endocrine: reports: no symptoms reported Hematologic/Lymphatic: reports: no symptoms reported Allergic/Immunologic: reports: no symptoms reported All Other Systems: Reviewed and Negative Past History - Adult - PAST MEDICAL HISTORY-ADULT Review of Records: reports: Nursing Assessment Review, Medications Reviewed, Social history reviewed & non-contributory. Major Childhood Illnesses: reports: denies history Cardiovascular: reports: HTN, hyperlipidemia, IA, pacemaker Respiratory: reports: other (ARDS) Gastrointestinal: reports: cancer (colon), GERD, pancreatitis, other (colon can - currently in remission) Genitourinary: reports: kidney disease (insuffiencey) Musculoskeletal: reports: chronic pain (back) Neurological: reports: cancer/tumor, cognitive dysfunction, TIA Psychiatric: reports: denies history Endocrine/Immune: reports: Diabetes - PRIOR SURGERIES/PROCEDURES Surgical/Procedure History: reports: CABG, pacemaker, bowel surgery, back/neck - IMMUNIZATION STATUS Childhood Immunizations: See Nurse Assessment Flu Vaccine: See Nurse Assessment - FAMILY HISTORY Family History: reviewed, not pertinent - SOCIAL HISTORY Smoking: quit greater than 1 year Substance Use: none/never Alcohol Use Frequency: never Living Situation: family Physical Exam-General - CONSTITUTIONAL General Appearance: appears well, alert, no apparent distress - EYES Eyes: PERRL/EOMI - HEAD, EARS, NOSE, MOUTH & THROAT HENMT: normocephalic/atraumatic, moist mucous membranes - NECK Neck: non-tender, full range of motion, supple - RESPIRATORY Respiratory: chest non-tender, decreased breath sounds - CARDIOVASCULAR Cardiovascular: regular rate, rhythm, no edema - GASTROINTESTINAL (ABDOMEN) Abdominal Exam: non tender, soft - MUSCULOSKELETAL Back Exam: no CVA tenderness Extremity: normal range of motion, non-tender - SKIN Integumentary: normal color - NEUROLOGIC Neurologic: boiling house oiler II-XII nml as tested - PSYCHIATRIC Psych/Mental Status: oriented x 3 Progress - PLAN OF CARE/RESULTS Progress/Plan/Lab Results: Vital Signs - 8 hr 05/13/19 15:18 05/13/19 19:19 05/13/19 19:23 Temperature 98.7 F Pulse Rate 76 77 75 Respiratory Rate 19 18 13 Blood Pressure 118/66 146/82 O2 Sat by Pulse Oximetry 87 L 96 99 05/13/19 15:28 Influenza Screen - Final Nasopharyngeal Laboratory Results - last 24 hr 05/13/19 05/13/19 15:45 15:45 WBC 13.69 H RBC 4.25 L Hgb 13.8 L Hct 41.8 L MCV 98.4 MCH 32.5 H MCHC 33.0 RDW Std Deviation 14.3 Plt Count 150 MPV 10.0 Immature Gran % (Auto) 0.3 Neut % (Auto) 79.1 H Lymph % (Auto) 7.5 L [place] % (Auto) 11.2 H Eos % (Auto) 1.4 Baso % (Auto) 0.5 Immature Gran # (Auto) 0.04 Neut # (Auto) 10.83 H Lymph # (Auto) 1.02 L [place] # (Auto) 1.54 H Eos # (Auto) 0.19 Baso # (Auto) 0.07 Sodium 127 L Potassium 4.6 Chloride 82 L Carbon Dioxide 31 Anion Gap 14 BUN 63 H Creatinine 2.0 H Estimated GFR/1.73 m2 33 BUN/Creatinine Ratio 32 Glucose 429 H* Calculated Osmolality 292 Calcium 9.6 Total Bilirubin 0.36 AST 34 ALT 14 Alkaline Phosphatase 84 Total Protein 7.8 Albumin 4.2 Globulin 3.6 Albumin/Globulin Ratio 1.2 Orders Category Date Time Status Use ED:PneumoniaAdultSet As Ordered Care 05/13/19 15:25 Active CHEST-1 VIEW [RAD] Stat Exams 05/13/19 15:25 Completed BLOOD CULTURE [BLDCUL] Stat Lab 05/13/19 18:30 Results CBC WITH ELECTRONIC DIFF [HEME] Stat Lab 05/13/19 15:45 Completed COMPREHENSIVE METABOLIC PANEL [CHEM] Stat Lab 05/13/19 15:45 Completed Flu Swab [INFLUENZA SCREEN A/B] Stat Lab 05/13/19 15:28 Completed 0.9% Sodium Chloride Inj [Ns] 1,000 ml Med 05/13/19 18:25 Discontinued IV 999 mls/hr Albuterol 2.5MG/Ipratrop 0.5MG [Duoneb (A & A)] Med 05/13/19 18:22 Discontinued 3 ml INH NOW ONE Albuterol [Albuterol Neb] Med 05/13/19 18:22 Discontinued 2.5 mg INH NOW ONE Albuterol [Albuterol Neb] Med 05/13/19 20:44 Discontinued 2.5 mg INH NOW ONE CefTRIAXONE [Rocephin] 1 gm Med 05/13/19 18:24 Discontinued 0.9% Sodium Chloride Inj [Ns] 50 ml IV NOW Ondansetron [Zofran] Med 05/13/19 18:24 Discontinued 4 mg IM NOW ONE Aerosol Treatments Routine Oth 05/13/19 18:24 Completed Aerosol Treatments Routine Oth 05/13/19 20:44 Active Aerosol Treatments Stat Oth 05/13/19 18:24 Completed Aerosol Treatments Stat Oth 05/13/19 20:44 Active Pneumonia (suspected) Stat Oth 05/13/19 15:25 Ordered EKG [EKG] Stat Ther 05/13/19 15:25 Draft Result Diagrams: 05/13/19 15:45 05/13/19 15:45 - REASSESSMENT Reassessment #1 Time Reassessed: 20:30 Status: unchanged (Patient noted to be wheezing b/l, after breathing treatment. Still lethargic, will do neb and admit. Will need control of blood sugar and solumedrol on admision) - CONSULTS/PCP/HOSPITALIST Notification #1 *Consult/PCP/Hospitalist*: Dr Ramirez Time Discussed: 20:40 Consult Disposition: Admit (accepts admission) Departure - Departure Date of Disposition Decision: 05/13/19 Time of Disposition Decision: 20:45 DIAGNOSIS: Hyperglycemia Pneumonia Qualifiers: Pneumonia type: due to unspecified organism Laterality: left Lung location: lower lobe of lung Qualified Code(s): J18.1 - Lobar pneumonia, unspecified organism COPD (chronic obstructive pulmonary disease) Qualifiers: COPD type: COPD with acute exacerbation Qualified Code(s): J44.1 - Chronic obstructive pulmonary disease with (acute) exacerbation Disposition: ADMITTED INPATIENT 09 Certified Medical Emergency: Emergent Condition: Fair Referrals and Follow-Ups: Cristy Rodriguez MD [Primary Care Provider] - - Critical Care Note This patient required my direct & personal management of CC.: No Attestation - Physician/ ANYA Attestation Patient care was provided by Advanced Practice Provider:: No The physician spent face to face time with patient:: Yes Advanced Practice Provider documentation review:: Supervising physician onsite a nd consulted in the evaluation and care of this patient. The physician did have a face to face encounter with the patient.
[2019-05-13] MEDS ORDERED: FLEXERIL PO PRN (23:35)
[2019-05-13] MEDS ORDERED: ZOFRAN IV PRN (23:35)
[2019-05-13] MEDS ORDERED: ROCEPHIN 1 GM in NS 50 ML IV SCH (23:35)
--- NOTE | 2019-05-13 23:49 | HISTORY AND PHYSICAL ---
PRIMARY CARE PHYSICIAN: Dr. Cristy Rodriguez. CHIEF COMPLAINT: Shortness of breath, cold-like symptoms. HISTORY OF PRESENTING ILLNESS: A 74-year-old male with a history of colon cancer, diabetes mellitus type 2, CHF, coronary artery disease and hypertension, who had presented to the emergency department with 1-week history of having cold-like symptoms. He states that he was coughing, and was short of breath and was occasionally having fevers. The patient was evaluated in the emergency department. He had imaging done which did show the possibility of pneumonia and subsequently he will require admission for further management. At the time of my examination, patient denied any nausea, vomiting, diarrhea, chest pain, hemoptysis, melena, but complained of cough, shortness of breath and not feeling well. PAST MEDICAL HISTORY: Includes colon cancer, diabetes mellitus type 2, CHF, coronary artery disease, CO, chronic kidney disease, solitary kidney, hypertension, hypothyroidism. PAST SURGICAL HISTORY: Coronary artery bypass, ICD, colon surgery, back surgery, skin cancer surgery. ALLERGIES: No known drug allergies. CURRENT MEDICATIONS: Include allopurinol 100 mg p.o. at bedtime, aspirin 81 mg p.o. daily, carvedilol 6.25 mg p.o. b.i.d., Flexeril 10 mg p.o. daily, Lasix 80 mg p.o. b.i.d., gabapentin 100 mg p.o. b.i.d., hydralazine 25 mg p.o. t.i.d., [place] 5 one p.o. daily, Lantus 40 units subcutaneous b.i.d., Humulin 70/30 of 35 units subcutaneous t.i.d. levothyroxine 88 mcg p.o. daily, lisinopril 10 mg p.o. daily, metolazone 5 mg p.o. b.i.d., pravastatin 80 mg p.o. at bedtime, quetiapine 25 mg p.o. b.i.d., ranitidine 300 mg p.o. at bedtime, sertraline 150 mg p.o. daily, tamsulosin 0.4 mg p.o. q.a.m. SOCIAL HISTORY: He is a former smoker. He denies any history of alcohol or illicit drug use. FAMILY HISTORY: Positive for coronary artery disease in mother and father. REVIEW OF SYSTEMS: Fourteen-point review of systems as listed in HPI. Other systems negative. PHYSICAL EXAMINATION: GENERAL: Cooperative, friendly male. He is resting more comfortably now. VITAL SIGNS: Temperature 98.7 degrees, pulse 76, respiration 19, blood pressure 118/66. He is saturating 87%. HEENT: Atraumatic, normocephalic. Extraocular movements intact. PERRLA. NECK: No masses. CHEST: Bibasilar rales. CARDIOVASCULAR: Regular rate and rhythm. ABDOMEN: Soft, obese. Positive bowel sounds. EXTREMITIES: Trace edema. NEUROLOGIC: He is awake, alert, oriented x3. GENITOURINARY: No bladder distention. SKIN: Warm. LABORATORIES AND STUDIES: Sodium 127, potassium 4.6, chloride 82, CO2 is 31, BUN is 63, creatinine is 2.0, glucose 429. ProBNP is 2784. WBC 13.69, hemoglobin 13.8, hematocrit 41.8, platelets 150,000. Chest x-ray shows left lower lobe atelectasis with possibility of pneumonia. ASSESSMENT: This is a 74-year-old male with a history of colon cancer, diabetes mellitus type 2, congestive heart failure, coronary disease and hypertension, who had presented to emergency department with 1-week history of having persistent cold-like symptoms including shortness of breath, cough and fever. He was evaluated in the emergency department. He had imaging done which did raise the suspicion for pneumonia. Subsequently, he will require admission for further management. 1. Probable pneumonia. 2. Chronic congestive heart failure. 3. Diabetes mellitus type 2 with hyperglycemia. 4. Hypertension. 5. Chronic kidney disease. PLAN: 1. We will admit patient to [facility]. 2. We will check blood cultures. Start patient on IV antibiotics. 3. We will continue with diuresis with Lasix. 4. Monitor blood glucose and put patient on sliding scale insulin regimen. 5. We will monitor blood pressure. Resume antihypertensive agent. 6. We will continue to monitor his renal function. 7. Put patient on DVT prophylaxis with SCDs. 8. We will continue to follow, reassess and make further recommendation based on patient's clinical course. cc: Shan Ramirez MD
[2019-05-13] MEDS: ZITHROMAX 500 MG/NS 500 MG/250 ML IVPB IV SCH (23:52)
[2019-05-14] MEDS: HUMULIN R SUBQ SCH ×5 (06:39→22:29)
[2019-05-14] MEDS: SYNTHROID PO SCH (06:41)
[2019-05-14 08:22] LABS: BASO% 1.1 % (0.0-0.8); EOS# 0.25 X1000 (0.0-0.7); EOS% 2.7 % (0.0-10.0); HEMATOCRIT 40.1 % (42.0-52.0); HEMOGLOBIN 12.8 g/dL (14.0-18.0); IMM GRAN# 0.05 X1000 (0.0-0.04); IMM GRAN% 0.5 % (0.0-0.5); LYMPH# 1.09 X1000 (1.2-3.4); LYMPH% 11.7 % (20.5-51.1); MCH 31.8 PG (27-31); MCHC 31.9 g/dL (33-37); MCV 99.8 FL (81-99); MONO# 1.11 X1000 (0.11-0.59); MONO% 11.9 % (1.7-9.3); MPV 9.5 FL (7.4-10.4); NEUT% 72.1 % (42.2-75.2); PLT 133 X1000 (130-400); RBC 4.02 XMIL (4.7-6.1); RDW 14.2 % (11.5-14.5)
[2019-05-14 08:46] LABS: CALCIUM 9.2 mg/dL (8.8-10.2); CREATININE 1.7 mg/dL (0.7-1.2); POTASSIUM 4.8 mmol/L (3.5-5.1)
[2019-05-14] MEDS: ASPIRIN PO SCH (09:26)
[2019-05-14] MEDS: LASIX PO SCH (09:26)
[2019-05-14] MEDS: COREG PO SCH (09:27)
[2019-05-14] MEDS: APRESOLINE PO SCH ×2 (09:27→16:13)
[2019-05-14] MEDS: ZOLOFT PO SCH (09:27)
[2019-05-14] MEDS: SEROQUEL PO SCH (09:28)
[2019-05-14] MEDS: REMERON PO SCH (09:28)
[2019-05-14] MEDS: ZAROXOLYN PO SCH (09:28)
[2019-05-14] MEDS: PRINIVIL PO SCH (09:29)
[2019-05-14] MEDS: FLOMAX PO SCH (09:29)
[2019-05-14] MEDS: NIACIN PO SCH (09:30)
[2019-05-14] MEDS: NORCO-5 PO SCH ×2 (09:42→23:56)
[2019-05-14] MEDS: NEURONTIN PO SCH (09:43)
[2019-05-14 12:26] LABS: EOS 4 % (1-10); LYMPHS 10 % (21-51); MONO 14 % (1-9); SEGS 72 % (42-75)
--- NOTE | 2019-05-14 16:32 | PROGRESS NOTE ---
DATE: 05/14/2019 Mr. Lewis was admitted. He is a patient of Dr. Cristy Rodriguez. He says for a couple weeks he has felt pretty bad. He had stopped his Eliquis, I think because he had a little piece of food impacted in his gum with some bleeding. He is a 74-year-old. For the last couple of weeks he has had cold-like symptoms and increasing shortness of breath. He has a history of colon cancer, diabetes mellitus type 2, congestive heart failure, coronary artery disease, and hypertension, presented to the emergency room with a history of having cold-like symptoms, coughing, short of breath. He has had coronary artery bypass graft. He has had an ICD pacemaker placed, colon surgery, back surgery, skin surgery for skin cancer, they found a probable pneumonia. MEDICAL HISTORY: History of congestive heart failure, diabetes mellitus type 2, hypertension. They did chest x-ray, minimal left lower lobe atelectasis. He has a history of ischemic cardiomyopathy. Last catheterization August 2015, occluded LAD, circumflex, right coronary, he has a patent mammary to LAD and patent vein graft to the right coronary, severely and diffusely diseased vein graft to an extremely small diagonal. This was treated with medical therapies. The last recorded ejection fraction per nuclear scan was 22%. Echo estimated at 25 to 30%, history of myocardial infarction. He has a history of ventricular tachycardia. He has a biventricular pacemaker and ICD in place. History of hypertension, diabetes, history of CVA, chronic kidney disease, so he seems to be doing much better. OBJECTIVE: He is afebrile, temperature 97.7 degrees, pulse 76, respirations 19, blood pressure 115/60. Pupils are equal and round. Lungs are clear in all lung arrieta. Cardiovascular examination regular rate without murmur or S3. Abdomen is soft. Skin is warm and dry. LABORATORY DATA: [place] he came[place] [address], this morning it is 9,300, hematocrit is 41, and it is stable at 40 this morning. Platelet count 150,000. Electrolytes, sodium was a little low at 127, this morning it is 132, creatinine 2.0 and it is up to 1.7. Blood sugars 429, 318, and 353, so they are running a little bit high. CURRENT ORDERS: He is on ceftriaxone 1 g q. 24 hours. He is on Coreg 6.25 mg b.i.d., allopurinol 100 mg at bedtime, Zantac 300 mg at bedtime, Lasix 80 mg p.o. b.i.d., Neurontin 100 mg b.i.d., Synthroid 88 mcg daily, Prinivil 10 mg a day. Zaroxolyn 5 mg b.i.d., Remeron 15 mg daily, niacin 500 mg twice a day, pravastatin 800 mg at bedtime, Seroquel 25 mg p.o. b.i.d., Zoloft 150 mg daily, Flomax 0.4 mg a day. He will check another chest x-ray in the morning. We will check his basic metabolic profile and magnesium in the morning as well. Blood cultures are pending. cc: Joseph Alexandre MD
--- NOTE | 2019-05-14 16:58 | Diag Imaging Result Doc PS360 ---
EXAM: CHEST-2 VIEWS 05/14/2019 HISTORY: pneumonia TECHNIQUE: PA and lateral chest COMMENT: There is cardiomegaly. There is a pacemaker on the left. The inspiration is not as optimal as on the previous study of 05/13/2019. There is calcification the mitral valve annulus. There is questionable atelectasis in the retrocardiac left lower lobe. IMPRESSION: Stable since 05/13/2019. Electronically signed by Peter Rudolph 05/14/2019 4:56 PM
[2019-05-14] MEDS: DUONEB (A & A) INH PRN (20:22)
[2019-05-14] MEDS ORDERED: ZANTAC PO SCH (21:00)
[2019-05-15] MEDS: NEURONTIN PO SCH ×3 (00:01→21:25)
[2019-05-15] MEDS: ZYLOPRIM PO SCH ×2 (00:01→21:24)
[2019-05-15] MEDS: PRAVACHOL PO SCH ×2 (00:01→21:24)
[2019-05-15] MEDS: SEROQUEL PO SCH ×3 (00:01→21:24)
[2019-05-15] MEDS: ROCEPHIN 1 GM in NS 50 ML IV SCH ×2 (00:02→21:24)
[2019-05-15] MEDS: LASIX PO SCH ×3 (00:02→21:24)
[2019-05-15] MEDS: APRESOLINE PO SCH ×4 (00:02→21:24)
[2019-05-15] MEDS: ZAROXOLYN PO SCH ×3 (00:02→21:24)
[2019-05-15] MEDS: COREG PO SCH ×3 (00:03→21:22)
[2019-05-15] MEDS: NIACIN PO SCH ×4 (00:30→21:24)
[2019-05-15] MEDS: ZITHROMAX 500 MG/NS 500 MG/250 ML IVPB IV SCH (00:35)
[2019-05-15] MEDS: HUMULIN R SUBQ SCH ×4 (06:48→21:30)
[2019-05-15] MEDS: SYNTHROID PO SCH (06:49)
[2019-05-15] MEDS: DUONEB (A & A) INH PRN ×2 (07:45→13:15)
[2019-05-15] MEDS: ASPIRIN PO SCH (09:46)
[2019-05-15] MEDS: PRINIVIL PO SCH (09:46)
[2019-05-15] MEDS: FLOMAX PO SCH (09:46)
[2019-05-15] MEDS: ZOLOFT PO SCH (09:46)
[2019-05-15] MEDS: REMERON PO SCH (09:47)
[2019-05-15] MEDS: NORCO-5 PO SCH (09:47)
[2019-05-15] MEDS: SOLU-MEDROL IV SCH (19:59)
--- NOTE | 2019-05-15 20:04 | PROGRESS NOTE ---
DATE: 05/15/2019 SUBJECTIVE: Today, Mr. Lewis refers to be doing well. He said his breathing seems to be progressively getting better. He was not on any supplemental oxygen. OBJECTIVE: Vital signs: Blood pressure is 133/86, pulse of 77, respirations 16, temperature is 98.2 degrees. General: Mr. Lewis is a 74-year-old male. He is in bed in no distress. HEENT: Mucosa is pink and moist. Anicteric. Acyanotic. Neck: Supple. No JVD. Lungs: Good air entry bilaterally. A few end-expiratory wheezing. Cardiovascular: Regular rate and rhythm. GI: Abdomen is soft. Extremities: No pedal edema. Skin: Some chronic changes in the lower abdomen consistent with stasis dermatopathy. LABORATORY DATA: None for this morning. Glucose was 216. ASSESSMENT: 1. Severe uncontrolled diabetes mellitus. Patient has been started back on insulin regimen. 2. Acute hypoxemic respiratory failure. We think this is multifactorial including possibility of pneumonia and chronic obstructive pulmonary disease exacerbation. 3. Acute bronchospasm, most likely due to chronic obstructive pulmonary disease exacerbation. Patient is on standard of care. We will add steroids as well. 4. Acute on chronic renal failure. Creatinine is trending down. 5. Severe systolic dysfunction with ejection fraction of 35%. The patient seems to be euvolemic. 6. Severe ischemic cardiomyopathy. The patient is status post pacemaker/automated implantable cardioverter-defibrillator. 7. Questionable superimposed pneumonia. Patient is on antimicrobial therapy. cc: Atilio Cabral MD
[2019-05-15] MEDS: PEPCID PO SCH (21:22)
[2019-05-15] MEDS: LANTUS INSULIN SUBQ SCH (21:25)
[2019-05-16] MEDS: ZITHROMAX 500 MG/NS 500 MG/250 ML IVPB IV SCH (00:32)
[2019-05-16] MEDS: SOLU-MEDROL IV SCH ×2 (06:11→18:30)
[2019-05-16] MEDS: SYNTHROID PO SCH (06:11)
[2019-05-16] MEDS: HUMULIN R SUBQ SCH ×4 (06:18→22:22)
[2019-05-16 08:29] LABS: AGAP 19; ALBUMIN 3.9 g/dL (3.5-5.0); BUN 77 mg/dL (8-22); CALCIUM 9.7 mg/dL (8.8-10.2); CHLORIDE 86 mmol/L (98-107); CHOLESTEROL 130 mg/dL (0-200); COSMO 307; CREATININE 1.7 mg/dL (0.7-1.2); ESTIMATED GFR 40; HDL 25 mg/dL (35-55); LDL 67 mg/dL; PHOSPHORUS 4.3 mg/dL (2.7-4.5); POTASSIUM 4.8 mmol/L (3.5-5.1); SODIUM 132 mmol/L (136-145); TCO2 27 mmol/L (25-35); TRIGLYCERIDES 188 mg/dL (39-160); VLDL 38 mg/dL
[2019-05-16 08:48] LABS: HEMATOCRIT 40.5 % (42.0-52.0); HEMOGLOBIN 13.3 g/dL (14.0-18.0); MCH 32.2 PG (27-31); MCHC 32.8 g/dL (33-37); MCV 98.1 FL (81-99); MPV 10.2 FL (7.4-10.4); RBC 4.13 XMIL (4.7-6.1); WBC 7.76 X1000 (4.8-10.8)
[2019-05-16 09:31] LABS: GLUCOSE 443 mg/dL (70-104)
[2019-05-16 09:50] LABS: HEMOGLOBIN A1C 9.9 % (4.8-6.0)
[2019-05-16] MEDS: LANTUS INSULIN SUBQ SCH ×2 (10:06→22:23)
[2019-05-16] MEDS: HUMALOG SUBQ SCH ×3 (10:06→18:29)
[2019-05-16] MEDS: FLOMAX PO SCH (10:07)
[2019-05-16] MEDS: NEURONTIN PO SCH ×2 (10:08→22:21)
[2019-05-16] MEDS: SEROQUEL PO SCH ×2 (10:08→22:23)
[2019-05-16] MEDS: LASIX PO SCH (10:08)
[2019-05-16] MEDS: ZAROXOLYN PO SCH (10:09)
[2019-05-16] MEDS: NIACIN PO SCH ×2 (10:09→22:21)
[2019-05-16] MEDS: PRINIVIL PO SCH (10:09)
[2019-05-16] MEDS: ZOLOFT PO SCH (10:10)
[2019-05-16] MEDS: ASPIRIN PO SCH (10:10)
[2019-05-16] MEDS: COREG PO SCH ×2 (10:10→22:23)
[2019-05-16] MEDS: APRESOLINE PO SCH ×3 (10:10→22:22)
[2019-05-16] MEDS: REMERON PO SCH (10:10)
[2019-05-16] MEDS: NORCO-5 PO SCH (10:11)
[2019-05-16] MEDS ORDERED: HUMALOG SUBQ ONE (13:56)
[2019-05-16] MEDS: NS 1,000 ML IV SCH (18:29)
--- NOTE | 2019-05-16 20:43 | PROGRESS NOTE ---
DATE: 05/16/2019 SUBJECTIVE: Today, Mr. Lewis referred to be doing okay. No new complaints. He continues to have mild shortness of breath. OBJECTIVE: Vital signs: Blood pressure is 109/63. Pulse of 71. Respiration is 18. Temperature is 98.5 degrees. Patient is saturating 96% on room air. General: Mr. Lewis is a 74-year-old, gentleman, morbidly obese. He is in bed, in no distress. Mucosa membranes pink and slightly dry. Anicteric, acyanotic. Neck: Supple. Chest: Good air entry bilaterally. A few distant end-expiratory wheezes. Cardiovascular: Regular rate and rhythm. No murmurs, no rubs, no gallops. Gastrointestinal: Abdomen is soft, nontender. Bowel sounds present. Extremities: No pedal edema. Chronic changes of stasis dermatopathy noted. LABORATORY DATA: CBC is unremarkable. Chemistry shows glucose was 443. ASSESSMENT/PLAN: 1. Severe uncontrolled diabetes mellitus. We will continue titrating his insulin needs. 2. Acute hypoxemic respiratory failure. We think the etiology was multifactorial including pneumonia and chronic obstructive pulmonary disease exacerbation. The patient has significantly improved. He is actually off supplemental oxygen today. 3. Bronchospasm secondary to chronic obstructive pulmonary disease exacerbation. We will continue with standard of care. 4. Acute on chronic renal failure. Creatinine continues to be trending down. 5. Clinical volume depletion. We will start the patient on very gentle IV fluids. We will also discontinue his diuretics for today. 6. Severe ischemic cardiomyopathy with systolic dysfunction, ejection fraction of 35%. The patient is currently euvolemic. He is status post pacemaker and automatic implantable cardioverter defibrillator. cc: Atilio Cabral MD
[2019-05-16] MEDS: PEPCID PO SCH (22:20)
[2019-05-16] MEDS: ZYLOPRIM PO SCH (22:21)
[2019-05-16] MEDS: PRAVACHOL PO SCH (22:22)
[2019-05-16] MEDS: DUONEB (A & A) INH PRN (22:31)
[2019-05-16] MEDS: ROCEPHIN 1 GM in NS 50 ML IV SCH (22:34)
[2019-05-17] MEDS: ZITHROMAX 500 MG/NS 500 MG/250 ML IVPB IV SCH (01:15)
[2019-05-17] MEDS: DUONEB (A & A) INH PRN (04:10)
[2019-05-17] MEDS: HUMULIN R SUBQ SCH ×4 (07:08→17:57)
[2019-05-17] MEDS: SOLU-MEDROL IV SCH ×2 (07:09→17:56)
[2019-05-17] MEDS: SYNTHROID PO SCH (07:09)
[2019-05-17 07:38] LABS: HEMATOCRIT 41.4 % (42.0-52.0); HEMOGLOBIN 13.7 g/dL (14.0-18.0); MCH 32.9 PG (27-31); MCHC 33.1 g/dL (33-37); MCV 99.3 FL (81-99); MPV 10.2 FL (7.4-10.4); RBC 4.17 XMIL (4.7-6.1); RDW 14.3 % (11.5-14.5); WBC 9.61 X1000 (4.8-10.8)
[2019-05-17 07:44] LABS: ALBUMIN 3.7 g/dL (3.5-5.0); CALCIUM 9.6 mg/dL (8.8-10.2); PHOSPHORUS 4.7 mg/dL (2.7-4.5); POTASSIUM 4.4 mmol/L (3.5-5.1)
--- NOTE | 2019-05-17 08:42 | Diag Imaging Result Doc PS360 ---
EXAM: CHEST-2 VIEWS HISTORY: hypoxia TECHNIQUE: PA and Lateral chest x-ray COMPARISON: 05/14/2019 FINDINGS: There is cardiomegaly with left transvenous pacemaker and mediastinal wires. Pulmonary vasculature is not congested. No infiltrates or effusions are identified. IMPRESSION: Stable cardiomegaly. No acute cardiopulmonary abnormality is identified. Electronically signed by Silvia Rousseau 05/17/2019 8:39 AM
[2019-05-17] MEDS: NEURONTIN PO SCH (09:40)
[2019-05-17] MEDS: HUMALOG SUBQ SCH ×3 (09:41→17:56)
[2019-05-17] MEDS: LANTUS INSULIN SUBQ SCH (09:41)
[2019-05-17] MEDS: FLOMAX PO SCH (09:42)
[2019-05-17] MEDS: COREG PO SCH (09:43)
[2019-05-17] MEDS: ZOLOFT PO SCH (09:43)
[2019-05-17] MEDS: NIACIN PO SCH (09:43)
[2019-05-17] MEDS: PRINIVIL PO SCH (09:44)
[2019-05-17] MEDS: SEROQUEL PO SCH (09:44)
[2019-05-17] MEDS: ASPIRIN PO SCH (09:44)
[2019-05-17] MEDS: NORCO-5 PO SCH (09:44)
[2019-05-17] MEDS: REMERON PO SCH (09:44)
[2019-05-17] MEDS: APRESOLINE PO SCH ×2 (09:44→15:34)
--- NOTE | 2019-05-17 12:28 | PROGRESS NOTE ---
DATE: 05/17/2019 SUBJECTIVE: This morning Mr. Lewis refers to be doing fair. No new complaints. He thinks the breathing is significantly improved. OBJECTIVE: Vital Signs: Blood pressure 148/87, pulse 73, respirations 18, temperature 97.6 degrees. General: Mr. Lewis is a 74-year-old morbidly obese male. He is in bed in no distress. HEENT: Mucosa is pink and moist. Anicteric. Acyanotic. Neck: Supple. Chest: There is good air entry bilaterally. Some distant and expiratory wheezing were heard. Cardiovascular: Regular rate and rhythm. No murmurs, no rubs, no gallops. GI: Abdomen is soft, distended, but nontender. Extremities: No pedal edema. Some chronic changes of stasis dermatopathy noted. AIRPORT RAMP ATTENDANT: Patient is awake, alert, and oriented. There is no focal deficit. LABORATORY DATA: WBC is 9.61, hemoglobin is 13.7, and platelet count of 209,000. Chemistry is also reviewed. Sodium is 125, potassium is 4.4, chloride is 82, and bicarb is 28. The patient's creatinine is 2.0, and glucose was 521. ASSESSMENT: 1. Severe uncontrolled diabetes mellitus. We will continue adjusting the insulin needs. 2. Acute hypoxemic respiratory failure improved. 3. Bronchospasm secondary to COPD exacerbation. 4. Acute on chronic renal failure. We will continue will continue to monitor diuretics, and other possible nephrotoxic drugs have all been discontinued. 5. Clinical volume depletion. We will continue with the gentle hydration. 6. Severe ischemic cardiomyopathy with systolic dysfunction, and ejection fraction of 35%. The patient is currently euvolemic. He is status post pacemaker and AICD. 7. Hypothyroidism. We will continue with the supplements. PLAN: we will be going up on the insulin needs for Mr. Lewis. We are going to continue with the gentle IV fluids, and re-evaluate him in the morning. We have readjusted the methylprednisolone dose since the bronchospasm is getting a lot better in an attempt to also help with his glucose control. cc: Atilio Cabral MD [facility]
[2019-05-17] MEDS: NS 1,000 ML IV SCH (15:34)
[2019-05-18] MEDS: PRAVACHOL PO SCH
[2019-05-18] MEDS: PEPCID PO SCH
[2019-05-18] MEDS: ZYLOPRIM PO SCH
[2019-05-18] MEDS: HUMULIN R SUBQ SCH ×4 (00:01→14:57)
[2019-05-18] MEDS: LANTUS INSULIN SUBQ SCH ×2 (00:01→09:23)
[2019-05-18] MEDS: NEURONTIN PO SCH ×2 (00:01→09:24)
[2019-05-18] MEDS: COREG PO SCH ×2 (00:01→09:25)
[2019-05-18] MEDS: ROCEPHIN 1 GM in NS 50 ML IV SCH (00:02)
[2019-05-18] MEDS: ZITHROMAX 500 MG/NS 500 MG/250 ML IVPB IV SCH (00:26)
[2019-05-18] MEDS: APRESOLINE PO SCH ×3 (00:26→16:15)
[2019-05-18] MEDS: SOLU-MEDROL IV SCH (06:41)
[2019-05-18] MEDS: SYNTHROID PO SCH (06:41)
[2019-05-18 07:19] LABS: ALBUMIN 3.5 g/dL (3.5-5.0); CALCIUM 9.3 mg/dL (8.8-10.2); CREATININE 1.7 mg/dL (0.7-1.2); PHOSPHORUS 4.5 mg/dL (2.7-4.5); POTASSIUM 4.6 mmol/L (3.5-5.1)
[2019-05-18] MEDS: HUMALOG SUBQ SCH ×2 (09:23→11:46)
[2019-05-18] MEDS: ZOLOFT PO SCH (09:24)
[2019-05-18] MEDS: SEROQUEL PO SCH ×2 (09:24)
[2019-05-18] MEDS: REMERON PO SCH (09:24)
[2019-05-18] MEDS: FLOMAX PO SCH (09:24)
[2019-05-18] MEDS: ASPIRIN PO SCH (09:24)
[2019-05-18] MEDS: PRINIVIL PO SCH (09:25)
[2019-05-18] MEDS: NORCO-5 PO SCH (09:25)
[2019-05-18] MEDS: NIACIN PO SCH ×2 (09:25)
[2019-05-18 15:23] VITALS: BP 129/63
--- NOTE | 2019-05-19 15:41 | DISCHARGE SUMMARY ---
ADMISSION DATE: 05/13/2019 DISCHARGE DATE: 05/18/2019 FOLLOW-UP: 1. Dr. Cristy Rodriguez. 2. Dr. Talbot. CONSULTATION DURING THIS ADMISSION: None. IMAGING STUDIES OF SIGNIFICANCE: Initial chest x-ray did show minimal left lower lobe atelectasis. A repeat on the shows stable chest. Repeat on yesterday shows stable cardiomegaly. No acute cardiopulmonary abnormality identified. ADMISSION DIAGNOSIS: 1. Probable pneumonia. 2. Congestive heart failure. 3. Diabetes mellitus. 4. Hypertension. DIAGNOSIS AT THE TIME OF DISCHARGE: 1. Severe uncontrolled diabetes mellitus with ejection fraction of 9.9 on admission. 2. Acute hypoxemic respiratory failure, improved. 3. COPD exacerbation. 4. Acute on chronic renal failure. 5. Severe ischemic cardiomyopathy with systolic dysfunction, ejection fraction of 35%. The patient is status post pacemaker and AICD. 6. Hypothyroidism. 7. History of atrial fibrillation, currently rate controlled. 8. Remote history of GI bleed and uncontrolled gum bleed on anticoagulation. The patient is not on any blood thinner for the atrial fibrillation due to that. 9. Morbid obesity with severe insulin resistance. DISCHARGE MEDICATIONS: 1. Pravastatin 80 mg p.o. at bedtime. 2. Tamsulosin 0.4 p.o. daily q.a.m. 3. Sertraline 150 p.o. daily. 4. Gabapentin 100 mg b.i.d. 5. Seroquel 25 mg b.i.d. 6. Carvedilol 6.25 b.i.d. 7. Allopurinol 100 mg p.o. at bedtime. 8. Aspirin 81 mg p.o. daily. 9. Mirtazapine 50 mg p.o. daily. 10. Niacin. 11. Ranitidine 300 mg p.o. at bedtime. 12. Hydralazine 25 mg p.o. 3 times per day. 13. Symbicort 2 puffs daily. 14. Insulin glargine 50 units subcutaneous b.i.d. 15. Lispro 15 units with meals. 16. Levothyroxine 80 mcg p.o. daily. 17. Augmentin 875 p.o. q. 12. 18. Azithromycin 250 p.o. daily. 19. Prednisone 20 mg p.o. daily for 5 days. 20. Lisinopril 10 mg p.o. daily. PRESENTING COMPLAINT: Shortness of breath, cold-like symptoms. HISTORY OF PRESENT COMPLAINT: Mr. Lewis is a 73-year-old male with multiple comorbidities including coronary artery disease, congestive heart failure, CKD, solitary kidney, hypertension, diabetes mellitus, severe insulin resistance, morbid obesity, came to the emergency department because of shortness of breath. Initial images show possibility of pneumonia. The patient was admitted for further medical care. HOSPITAL COURSE: Mr. Lewis was admitted to the medical floor, started on supplemental oxygen, broad-spectrum antibiotics and diuretic therapy. Progressively his shortness of breath continues to improve to where occasionally he was even off supplemental oxygen. Repeat x-rays were done. Mr. Lewis' respiratory status improved with the management. In terms of the uncontrolled diabetes, Mr. Lewis was at home on glargine insulin as well as 70/30. Here in the hospital, we have been able to control it with glargine and lispro with meals as well as sliding scale. I have gone into detailed discussion with him as well as the who was at the bedside about his nutritional needs for the diabetes and the need for him to follow up with diabetic education. I have also advised and educated him about the changes that I have made in his insulin regimen. He will be on glargine at 50 units b.i.d. and lispro with meals. He is going to follow up with Dr. Cristy Rodriguez for further titration on his insulin needs. It is worth to note that Mr. Lewis is remarkably insulin resistant. He is on this huge dose of insulin and yet his glucose is not very well controlled. We have advised that he also needs to lose some weight and pay very critical attention to his diet. Mr. Lewis' other comorbidities were all addressed during the hospital course. Of note, he has atrial fibrillation and is s/p pacemaker. His heart rhythm is currently a paced rhythm and he seems to be regular. He has not been on any blood thinner for over a year because of an uncontrolled massive gum and GI bleed in the past. He is going to follow up with Dr. Talbot, who is his process mold technician, for all his cardiac issues. Mr. Lewis also follows up with Dr. Hogue for his CKD. All the discharge instructions were discussed with him and the . Both voiced understanding. Mr. Lewis has refused to wanting to be on home health. Time spent for discharge is 38 minutes. cc: MD Cristy Stoner MD Reginald D. Gladish, MD MTDD
== END 2019-05-18 16:45 | disposition home or self-care (01) | DRG 193 ==
LOC: ED 14:49 → SUATTDRO 05-14 00:02 → EDIPHOLD 05-14 00:02 → 4N 05-14 11:00
PROVIDERS: ATTEND Internal Medicine